=== PATIENT | female | born 1985 | race Two or more races ===

== ENCOUNTER 2017-11-15 13:25 | Outpatient (CLI) | payer OTHER ==
[~2017-11-15 13:25] MED LIST: ACETAMINOOPHEN-1 TAB PO; NAPR500T14 PO
== END 2017-11-15 13:27 | disposition home or self-care (01) ==
LOC: SONOGRAMA 13:25
DX: D25.1 Intramural leiomyoma of uterus (principal)

== ENCOUNTER 2018-03-18 13:31 | Outpatient (CLI) | payer OTHER | END 2018-03-18 13:33 | disposition home or self-care (01) | LOC: SONOGRAMA 13:31 | DX: D25.1 Intramural leiomyoma of uterus (principal); D25.0 Submucous leiomyoma of uterus ==

== ENCOUNTER 2018-09-30 13:21 | Outpatient (CLI) | payer OTHER | END 2018-09-30 13:23 | disposition home or self-care (01) | LOC: SONOGRAMA 13:21 | DX: D25.1 Intramural leiomyoma of uterus (principal); D25.0 Submucous leiomyoma of uterus ==

== ENCOUNTER 2019-01-30 13:39 | Outpatient (CLI) | payer OTHER | END 2019-01-30 13:46 | disposition home or self-care (01) | LOC: SONOGRAMA 13:39 | DX: D25.1 Intramural leiomyoma of uterus (principal); D25.0 Submucous leiomyoma of uterus ==

== ENCOUNTER 2019-02-21 13:47 | Outpatient (CLI) | payer OTHER | END 2019-02-21 14:53 | disposition home or self-care (01) | LOC: LAB 13:47 | DX: D25.1 Intramural leiomyoma of uterus (principal); D25.0 Submucous leiomyoma of uterus ==

== ENCOUNTER 2019-02-23 13:20 | Outpatient (CLI) | payer OTHER | END 2019-02-24 11:03 | disposition home or self-care (01) | LOC: MRI 13:20 | DX: D25.1 Intramural leiomyoma of uterus (principal); D25.0 Submucous leiomyoma of uterus | CPT/HCPCS: 72196 ==

== ENCOUNTER → 2019-04-18 | Outpatient (CLI) | payer OTHER | END | disposition home or self-care (01) | LOC: RAD 13:55 | DX: M77.31 Calcaneal spur, right foot (principal); M77.32 Calcaneal spur, left foot ==